=== PATIENT | male | born 1960 | race Caucasian/White ===

== ENCOUNTER 2019-10-25 09:25 | Inpatient (IN) | payer BC ==
[2019-10-25] MEDS ORDERED: Ondansetron INJ* 2 MG/ML VIAL IV ONE (09:43)
[2019-10-25] MEDS ORDERED: NS 0.9% 1000 ML** 1,000 ML IV ONE (09:43)
--- NOTE | 2019-10-25 09:46 | ED ---
Abdominal Pain/Male - HPI Summary HPI Summary: This pt is a 59 Y/O M presenting to [facility] with a CC of vomiting and abdominal pain since 10/21/2019. He states that the current severity is rated a 2/10 in severity and is described as cramping. He states that he has been constipated since 10/22/2019. He also reports pain in his kidneys. He denies any fevers, chills, headaches, and SOB. He has no alleviating or aggravating factors. He states that he recently has had inguinal hernias that needed 3 repairs. 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 Home medications reviewed. Allergies noted. - History of Current Complaint Chief Complaint: Bob Stated Complaint: VOMITING SINCE SUNDAY PER PT Time Seen by Provider: 10/25/19 09:35 Hx Obtained From: Patient Onset/Duration: Sudden Onset, Still Present Timing: Constant Severity Initially: Mild Severity Currently: Mild Pain Intensity: 2 Pain Scale Used: 0-10 Numeric Location: Diffuse Radiates: Yes Radiates to: Flank - bilateral Character: Cramping Aggravating Factor(s): Nothing Alleviating Factor(s): Nothing Associated Signs And Symptoms: Positive: Negative - chills, SOB, Constipation, Decreased Appetite, Nausea, Vomiting, Other - flank pain. Negative: Fever - Allergies/Home Medications Allergies/Adverse Reactions: Allergies Allergy/AdvReac Type Severity Reaction Status Date / Time Penicillins Allergy Unknown Verified 10/25/19 09:48 Reaction Details Home Medications: Home Medications NK [No Home Medications Reported] 10/25/19 [History Confirmed 10/25/19] PMH/Surg Hx/FS Hx/Imm Hx Previously Healthy: Yes Endocrine/Hematology History: Denies: Hx Thyroid Disease Cardiovascular History: Denies: Hx Hypertension Sensory History: Reports: Hx Contacts or Glasses Opthamlomology History: Reports: Hx Contacts or Glasses - Cancer History Hx Chemotherapy: No Hx Radiation Therapy: No - Surgical History Surgical History: None - Immunization History Immunizations Up to Date: Yes Infectious Disease History: No Infectious Disease History: Denies: Traveled Outside the [place] in Last 30 Days - Family History Known Family History: Positive: Hypertension, Diabetes - Social History Occupation: Employed Full-time Lives: With Family Alcohol Use: None Hx Substance Use: No Substance Use Type: Reports: None Hx Tobacco Use: Yes Smoking Status (MU): Current Every Day Smoker Review of Systems Negative: Fever, Chills Negative: Shortness Of Breath Positive: Abdominal Pain, Vomiting, Nausea, Other - decreased appetite Positive: flank pain - bilateral Negative: Headache All Other Systems Reviewed And Are Negative: Yes Physical Exam - Summary Physical Exam Summary: Constitutional: Well-developed, Well-nourished, Alert. (-) Distressed Skin: Warm, Dry, surgical scar to mid abdomen HENT: Normocephalic; Atraumatic Eyes: Conjunctiva normal Neck: Musculoskeletal ROM normal neck. (-) JVD, (-) Stridor, (-) Tracheal deviation Cardio: Rhythm regular, rate normal, Heart sounds normal; Intact distal pulses; The pedal pulses are 2+ and symmetric. Radial pulses are 2+ and symmetric. (-) Murmur Pulmonary/Chest wall: Effort normal. (-) Respiratory distress, (-) Wheezes, (-) Rales Abd: Soft, mild L lower quadrant tenderness, (-) Distension, (-) Guarding, (-) Rebound Musculoskeletal: (-) Edema Lymph: (-) Cervical adenopathy Neuro: Alert, Oriented x3 Psych: Mood and affect Normal Triage Information Reviewed: Yes Vital Signs On Initial Exam: Initial Vitals Temp Pulse Resp BP Pulse Ox 99.0 F 100 18 153/103 98 10/25/19 09:26 10/25/19 09:26 10/25/19 09:26 10/25/19 09:26 10/25/19 09:26 Vital Signs Reviewed: Yes Procedures - Sedation Patient Received Moderate/Deep Sedation with Procedure: No Diagnostics - Vital Signs Vital Signs Temp Pulse Resp BP Pulse Ox 10/25/19 09:26 99.0 F 100 18 153/103 98 - Laboratory Result Diagrams: 10/26/19 04:49 10/26/19 04:49 Lab Statement: Any lab studies that have been ordered have been reviewed, and results considered in the medical decision making process. - CT CT A/P CT Interpretation Completed By: Radiologist Summary of CT Findings: 1. SMALL BOWEL OBSTRUCTION WITH A TRANSITION POINT IN THE LOWER ABDOMEN. 2. ATHEROSCLEROSIS. 3. DIVERTICULOSIS. 4. SPONDYLOLYSIS WITH SPONDYLOLISTHESIS AT L5-S1.. ED physician has reviewed this report. Abdominal Pain Male Course/Dx - Course Course Of Treatment: Patient is here with vomiting and lack of bowel movement. Patient has a history of bowel obstructions or workup was performed. Patient had a CT scan which showed a bowel obstruction. Surgery was called and admitted the patient. - Diagnoses Provider Diagnoses: Small bowel obstruction - Provider Notifications Discussed Care Of Patient With: Clem Martínez Time Discussed With Above Provider: 11:25 Instructed by Provider To: Admit As Inpatient Admit/Transition Orders Completed By ED Provider: Yes Discharge ED - Sign-Out/Discharge Documenting (check all that apply): Patient Departure - admitted - Discharge Plan Condition: Stable Disposition: ADMITTED TO [facility] - Billing Disposition and Condition Condition: STABLE Disposition: Admitted to [facility] - Attestation Statements Document Initiated by Rosalinda: Yes Documenting Scribe: Cody August Provider For Whom Rosalinda is Documenting (Include Credential): tanisha Calero MD Scribe Attestation: Cody Bolanos, scribed for tanisha Calero MD on 10/26/19 at 0951. Scribe Documentation Reviewed: Yes Provider Attestation: The documentation as recorded by the Cody brown accurately reflects the service I personally performed and the decisions made by tanisha khalil MD Status of Scribe Document: Viewed
[2019-10-25 10:02] LABS: ABS Lymphocytes 1.4 10^3/ul (1.0-4.8); ABS Neutrophils 6.2 10^3/ul (1.5-7.7); Eosinophil % 0.5 %; Hematocrit 43 % (42-52); Hemoglobin 15.1 g/dL (14.0-18.0); Mean Corpuscular HGB Conc 35 g/dL (31-36); Mean Corpuscular Hemoglobin 33 pg (27-31); Mean Corpuscular Volume 92 fL (80-94); Platelet Count 340 10^3/uL (150-450); Red Blood Count 4.63 10^6 /uL (4.18-5.48); Red Cell Distribution Width 13 % (10-15); White Blood Count 8.6 10^3/uL (3.5-10.8)
[2019-10-25 10:19] LABS: Albumin 4.5 g/dL (3.2-5.2); Albumin/Globulin Ratio 1.6 (1-3); Calcium 9.7 mg/dL (8.6-10.3); EGFR African American 93.2 (>60); Globulin 2.9 g/dL (2-4); Potassium 3.7 mmol/L (3.5-5.0); Total Bilirubin 0.7 mg/dL (0.2-1.0); Total Protein 7.4 g/dL (6.4-8.9)
[2019-10-25] MEDS ORDERED: Iohexol 300* (CONTRAST) 10 ML SDV IV ONE (10:26)
[2019-10-25] MEDS ORDERED: HYDROmorphone INJ* 0.5 MG/0.5 ML SYRINGE IV SLOW PU PRN (12:11)
[2019-10-25] MEDS: NS 0.9% 1000 ML** 1,000 ML IV SCH ×2 (13:42→21:12)
[2019-10-25] MEDS ORDERED: Influenza VAC *QUAD* 2019-20* 0.5 ML SYRINGE IM ONE (14:00)
[2019-10-25] MEDS: Nicotine PATCH 21 MG/24 HR* PATCH TRANSDERM SCH (14:12)
--- NOTE | 2019-10-25 14:54 | HP ---
CC: [facility]; Dr. Yves Sandoval's office * HISTORY AND PHYSICAL: DATE OF ADMISSION: 10/25/19 REASON FOR ADMISSION: Small bowel obstruction. HISTORY OF PRESENT ILLNESS: Mr. 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 He has been passing minimal flatus. He has not had a bowel movement in several days. He presented to the emergency room today and was noted to be afebrile, but has a slight elevation in his heart rate. His laboratory workup was essentially unremarkable with normal white blood cell count, electrolytes, and renal function. He has normal liver transaminases and total bilirubin. He underwent a CT scan of the abdominal and pelvis, which shows finding consistent with a small bowel obstruction. He has had an apparent small bowel resection in the past (please see below), and there was some fecalization of some proximal small bowel dilation with distally collapsed small bowel. There is no evidence of free fluid or air. A small amount of air in the right colon. There was no other acute findings. Of significance, he had developed what appears to have been an incarcerated/ strangulated left inguinal hernia while traveling through [place] last summer and presented to the [facility] there. He is not certain of the exact sequence of surgeries; however, apparently he underwent an open repair of a left inguinal hernia (not certain if mesh was used), and subsequently required a laparotomy with apparent small bowel resection for ischemia and/or adhesive disease. 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 His present symptoms started 4 days ago while he was in [place], but he wanted to drive home prior to presenting to the emergency room. PAST MEDICAL HISTORY: Tobacco abuse. PAST SURGICAL HISTORY: 1. Open left inguinal hernia repair as above. 2. Laparotomy with small bowel resection as per above. We do not have records from this surgery. MEDICATIONS: He takes no medicines at home. ALLERGIES: PENICILLINS. FAMILY HISTORY: He is unsure of any significant findings in his family. SOCIAL HISTORY: He smokes daily and admits to smoking about too much, does not drink alcohol. He lives in [place] with his girlfriend. He spends most of his time driving. He denies illicit drugs. REVIEW OF SYSTEMS: A 14 point review of systems obtained and is all positive per above. He denies any diabetes, heart disease, hypertension or liver disease. PHYSICAL EXAMINATION GENERAL: He is a slender male, appears to be in no apparent distress. He is awake, alert and conversive. VITAL SIGNS: Temperature 99, pulse 100, blood pressure 153/103. HEENT: Sclerae is anicteric. His oral mucosa is slightly dry. Trachea was midline. LUNGS: Clear to auscultation with normal respiratory effort. HEART: Regular rate and rhythm without murmurs, rubs, or gallops. ABDOMEN: Soft and not particularly distended. He has a well healed left groin oblique incision without hernia. There is no right inguinal hernia. He has a small vertical midline incision from the umbilicus down to about senior living to the suprapubic tubercle, which is well healed without hernia. He had some bowel sounds, which are slightly hyperactive throughout but not high pitched or tinkling. He has minimal discomfort. There is no peritoneal irritation, rebound , or guarding. PSYCH: He is awake alert and oriented x3. He has normal judgment and insight IMPRESSION: Small bowel obstruction. He has a complicated surgical history as per above last summer, where he had an apparent small bowel resection with a stapled anastomosis. He is not certain exactly why this was done, but it was a follow-up operation after undergoing what sounds like an emergent repair of a strangulated left inguinal hernia. CT scan shows findings consistent with small bowel obstruction, however, there is fecalization of fluid within the more proximal small bowel up towards the area of the anastomosis indicating this may have been more of a chronic issue than just the last 3 or 4 days. Difficult to determine if the narrowing or transition point is at the anastomosis by the CT scan. PLAN: 1. The patient will be admitted to the surgical service. 2. Nasogastric tube has been inserted. We will place the low continuous suction. 3. He will be allowed ice chips and we will start on aggressive IV hydration. 4. Analgesia will be administered as needed. 5. Repeat laboratory values in the morning. We discussed all of this with the patient and his girlfriend who is present in the emergency room. Hopefully, this will not require a surgical exploration. We will follow him closely over the next 48 to 72 hours with the above plan. [id number]/[facility] #: [id number] [facility]ENTERCasey
[2019-10-25] MEDS: Ondansetron INJ* 2 MG/ML VIAL IV PRN ×2 (16:54→21:12)
[2019-10-25] MEDS: Nicotine Patch Removal NOTE PATCH OFF SCH (20:36)
[2019-10-26] MEDS ORDERED: Acetaminophen IV 1GM/100ML * 100 ML IVPB ONE (03:22)
[2019-10-26] MEDS: NS 0.9% 1000 ML** 1,000 ML IV SCH ×3 (04:06→21:01)
[2019-10-26] MEDS: Ondansetron INJ* 2 MG/ML VIAL IV PRN (04:07)
[2019-10-26 05:18] LABS: ABS Basophils 0.1 10^3/ul (0-0.2); ABS Eosinophils 0.1 10^3/ul (0-0.6); ABS Lymphocytes 1.3 10^3/ul (1.0-4.8); ABS Neutrophils 6.8 10^3/ul (1.5-7.7); Hematocrit 37 % (42-52); Hemoglobin 13.1 g/dL (14.0-18.0); Lymphocyte % 14.2 %; Mean Corpuscular HGB Conc 35 g/dL (31-36); Mean Corpuscular Hemoglobin 33 pg (27-31); Mean Corpuscular Volume 94 fL (80-94); Mean Platelet Volume 6.9 fL (7.4-10.4); Platelet Count 299 10^3/uL (150-450); Red Blood Count 3.99 10^6 /uL (4.18-5.48); Red Cell Distribution Width 13 % (10-15); White Blood Count 9.3 10^3/uL (3.5-10.8)
[2019-10-26 05:34] LABS: BUN/Creatinine Ratio 21.8 (8-20); Calcium 8.3 mg/dL (8.6-10.3); EGFR African American 109.4 (>60); EGFR Non-African American 90.4 (>60); Potassium 3.5 mmol/L (3.5-5.0)
--- NOTE | 2019-10-26 09:43 | PN ---
Progress Note - Progress Note Date of Service: 10/26/19 SOAP: Subjective: Passing flatus overnight No pain or nausea Objective: Temp Pulse Resp BP Pulse Ox 98.1 F 78 17 133/71 99 10/26/19 07:28 10/26/19 07:28 10/26/19 07:28 10/26/19 07:28 10/26/19 07:28 Intake & Output 10/24/19 10/25/19 10/26/19 10/27/19 06:59 06:59 06:59 06:59 Intake Total 5474 Output Total 1700 Balance 3774 Weight 182 lb Intake: IV Fluids 4944 NS (0.9%) 1970 IVPB 200 Tylenol IV 100 Oral 0 NG Tube Irrigate Amount 330 Output: NG Tube Drainage Amount 1400 Urine 300 Other: Estimated Void Medium # Voids 1 PEX: Comfortable Lungs are clear Cor is RRR Abd is soft and non-distended. Few bowel sounds present-not high pitched or tinkling. Mild generalized tenderness, no rebound or guarding. No hernias Ext without edema Laboratory Results - last 24 hr 10/25/19 10/25/19 10/26/19 09:49 09:54 04:49 WBC 8.6 9.3 RBC 4.63 3.99 L Hgb 15.1 13.1 L Hct 43 37 L MCV 92 94 MCH 33 H 33 H MCHC 35 35 RDW 13 13 Plt Count 340 299 MPV 7.0 L 6.9 L Neut % (Auto) 71.6 73.2 Lymph % (Auto) 16.0 14.2 [place] % (Auto) 11.6 11.0 Eos % (Auto) 0.5 1.0 Baso % (Auto) 0.3 0.6 Absolute Neuts (auto) 6.2 6.8 Absolute Lymphs (auto) 1.4 1.3 Absolute Monos (auto) 1.0 H 1.0 H Absolute Eos (auto) 0.0 0.1 Absolute Basos (auto) 0.0 0.1 Absolute Nucleated RBC 0.0 0.0 Nucleated RBC % 0.0 0.0 Sodium 132 L Potassium 3.7 Chloride 95 L Carbon Dioxide 27 Anion Gap 10 BUN 22 Creatinine 1.00 Est GFR ( Amer) 93.2 Est GFR (Non-Af Amer) 77.0 BUN/Creatinine Ratio 22.0 H Glucose 114 H Calcium 9.7 Total Bilirubin 0.70 AST 13 ALT 9 Alkaline Phosphatase 54 Total Protein 7.4 Albumin 4.5 Globulin 2.9 Albumin/Globulin Ratio 1.6 Lipase 25 10/26/19 04:49 WBC RBC Hgb Hct MCV MCH MCHC RDW Plt Count MPV Neut % (Auto) Lymph % (Auto) [place] % (Auto) Eos % (Auto) Baso % (Auto) Absolute Neuts (auto) Absolute Lymphs (auto) Absolute Monos (auto) Absolute Eos (auto) Absolute Basos (auto) Absolute Nucleated RBC Nucleated RBC % Sodium 136 Potassium 3.5 Chloride 104 Carbon Dioxide 25 Anion Gap 7 BUN 19 Creatinine 0.87 Est GFR ( Amer) 109.4 Est GFR (Non-Af Amer) 90.4 BUN/Creatinine Ratio 21.8 H Glucose 84 Calcium 8.3 L Total Bilirubin AST ALT Alkaline Phosphatase Total Protein Albumin Globulin Albumin/Globulin Ratio Lipase Assessment: Small bowel obstruction secondary to adhesive disease-passing some flatus overnight Labs noted-normal WBC, renal function improving, no fever or tachycardia Plan: Continue NGT and ice chips IVF Add PPI Increase activity AXR and labs in AM 2 All discussed with patient.
[2019-10-26] MEDS ORDERED: NS 0.9% 1000 ML** 1,000 ML IV ONE (09:44)
[2019-10-26] MEDS: Nicotine PATCH 21 MG/24 HR* PATCH TRANSDERM SCH (10:13)
[2019-10-26] MEDS: Famotidine IV* 10 MG/ML 2 ML (20 mg) IV SLOW PU SCH ×2 (10:13→21:00)
[2019-10-26] MEDS: Nicotine Patch Removal NOTE PATCH OFF SCH (21:03)
[2019-10-27] MEDS: NS 0.9% 1000 ML** 1,000 ML IV SCH ×3 (03:40→19:21)
[2019-10-27 05:46] LABS: Calcium 8.2 mg/dL (8.6-10.3); EGFR Non-African American 104.1 (>60); Potassium 3.6 mmol/L (3.5-5.0)
[2019-10-27] MEDS: Nicotine PATCH 21 MG/24 HR* PATCH TRANSDERM SCH (08:25)
[2019-10-27] MEDS: Famotidine IV* 10 MG/ML 2 ML (20 mg) IV SLOW PU SCH ×2 (08:26→20:12)
--- NOTE | 2019-10-27 09:46 | PN ---
Progress Note - Progress Note Date of Service: 10/27/19 SOAP: Subjective: Passing flatus Had some crampy abdominal pain last night, now resolved No BM No N/V Objective: Temp Pulse Resp BP Pulse Ox 98.8 F 71 16 135/62 96 10/27/19 07:00 10/27/19 07:00 10/27/19 07:00 10/27/19 07:00 10/27/19 07:00 Intake & Output 10/25/19 10/26/19 10/27/19 10/28/19 06:59 06:59 06:59 06:59 Intake Total 5474 2950 Output Total 1700 2050 Balance 3774 900 Weight 182 lb Intake: IV Fluids 4944 2950 NS (0.9%) 1970 2950 IVPB 200 Tylenol IV 100 Oral 0 0 NG Tube Irrigate Amount 330 Output: NG Tube Drainage Amount 1400 925 Urine 300 1125 Other: Estimated Void Medium # Bowel Movements 0 # Voids 1 PEX: Comfortable Lungs are clean Cor is RRR Abd is soft and non-distended. Bowel sounds are present, hypoactive. Mild tenderness. No hernias Ext without edema AXR 10/27 reviewed--stool in right colon, no dilated small bowel. Assessment: Small bowel obstruction-appears to be improving, minimal NGT output last 12 hours, passing flatus Plan: D/C NGT Sips of clears Increase activity Follow for now
[2019-10-27] MEDS: Ondansetron INJ* 2 MG/ML VIAL IV PRN (10:36)
[2019-10-27] MEDS: Nicotine Patch Removal NOTE PATCH OFF SCH (20:13)
[2019-10-28] MEDS: NS 0.9% 1000 ML** 1,000 ML IV SCH ×2 (01:41→10:01)
[2019-10-28 05:17] LABS: BUN/Creatinine Ratio 15.1 (8-20); Calcium 8.1 mg/dL (8.6-10.3); EGFR Non-African American 110.7 (>60); Potassium 3.9 mmol/L (3.5-5.0)
[2019-10-28] MEDS: Nicotine PATCH 21 MG/24 HR* PATCH TRANSDERM SCH (08:50)
[2019-10-28] MEDS: Famotidine IV* 10 MG/ML 2 ML (20 mg) IV SLOW PU SCH ×2 (10:07→20:44)
--- NOTE | 2019-10-28 10:57 | PN ---
Progress Note - Progress Note Date of Service: 10/28/19 Note: S: patient seen w/ Dr. Del Rio. Denies pain. Passing flatus and has had BMs both yesterday and this am. Would like to advance diet. O: Vital Signs - 8 hr 10/28/19 10/28/19 10/28/19 03:33 07:57 08:00 Temperature 98.1 F 97.9 F Pulse Rate 60 62 Respiratory 16 18 20 Rate Blood Pressure 117/71 128/76 (mmHg) O2 Sat by Pulse 100 99 Oximetry Intake and Output Last 24 Hours 10/26/19 10/27/19 10/28/19 10/29/19 06:59 06:59 06:59 06:59 Intake Total 5474 2950 2710 995 Output Total 1700 2050 1000 1400 Balance 3774 900 1710 -405 Weight 182 lb Intake: IV Fluids 4944 2950 980 995 NS (0.9%) 1970 2950 980 995 IVPB 200 990 NS (0.9%) 990 Tylenol IV 100 Oral 0 0 740 NG Tube Irrigate Amount 330 Output: NG Tube Drainage Amount 1400 925 Urine 300 1125 1000 1400 Other: Estimated Void Medium Medium # Bowel Movements 0 1 Estimated Stool Amount Large # Voids 1 Gen: appears comfortable; NAD Heart: reg LUngs: clear ant Abd: +BS; soft, nontender A: SBO, resolving P: will try full liqs; decrease IVF; prob home tomorrow
[2019-10-28] MEDS: Nicotine Patch Removal NOTE PATCH OFF SCH (21:34)
[2019-10-29] MEDS: NS 0.9% 1000 ML** 1,000 ML IV SCH (02:17)
[2019-10-29 08:03] VITALS: BP 124/79
[2019-10-29] MEDS: Famotidine IV* 10 MG/ML 2 ML (20 mg) IV SLOW PU SCH (08:32)
[2019-10-29] MEDS: Nicotine PATCH 21 MG/24 HR* PATCH TRANSDERM SCH (08:33)
--- NOTE | 2019-10-29 08:49 | PN ---
Progress Note - Progress Note Date of Service: 10/29/19 SOAP: Subjective: NAD Reports + Flatus, - BM [] Objective: Vital Signs Temp 98.0 F 10/29/19 08:02 Pulse 59 10/29/19 08:02 Resp 16 10/29/19 08:02 BP 124/79 10/29/19 08:02 Pulse Ox 100 10/29/19 08:02 Intake & Output 10/28/19 10/29/19 10/29/19 18:59 06:59 18:59 Intake Total 1475 2127 Output Total 1999 2870 Balance -525 -743 Intake: IV Fluids 995 997 NS (0.9%) 995 997 Oral 480 1130 Output: Urine 1999 2870 PEX Gen: NAD Chest: CTAB CVS: bradycardic rate, reg rhythm ABD: soft, non tender, + BS's all quad's, no guarding EXT: calves Soft, non tender [] Assessment: 59 yo male with SBO treated conservatively responding well to same. BM yesterday AM, continues to have flatus [] Plan: continue fulls, slowly advance diet with return of bowel function. OK to discharge home, Follow up as needed. Above D/W Dr Del Rio []
--- NOTE | 2019-10-30 14:05 | DS ---
Discharge Summary Surgeon: Eliane ARRIETA Admit Date:10/25/2019 Discharge Date:10/29/2019 Admission DX:SBO Discharge DX:SBO Resolved Condition at Discharge:Stable Date of D/C PEX: Chest:CTAB CVS:RRR ABD:Soft, ND/NT no guarding EXT:calves soft NT Procedures Performed: NGT, IV Hydration, Observation Hospital Course: 59 yo male presented with a SBO. Was followed on the surgical quigley with iv fluids, an NGT and observation. NG tube placed on HD 1. on HD 2 small flatus, AXR showed improvement. HD 3, NG out + BM clr liquids. HD 4 advance to full liquids, + BM, D/C Home Discharge instructions were given to the patient regarding Diet, Medications, Activity, and post operative Follow up. All Questions were answered. Discharged Home in Stable Condition on 10/29/2019
== END 2019-10-29 10:45 | disposition home or self-care (01) | DRG 247 ==
LOC: ED 09:25 → SSU 12:11 → OBSVTOIN 10-26 10:00
PROVIDERS: ADMIT Internal Medicine; ATTEND Surgery
DX: K56.50 Intestinal adhesions [bands], unspecified as to partial versus complete obstruction (principal); F17.200 Nicotine dependence, unspecified, uncomplicated; Z88.0 Allergy status to penicillin; Z23 Encounter for immunization
CPT/HCPCS: 36415; 74019; 74177; 80048; 80053; 83690; 85025; 90686; 96361; 96374; 99284; A9270-GY; G0378; J2405; Q9967